=== PATIENT | female | born 1970 | race Caucasian/White ===

== ENCOUNTER → 2021-03-07 | Day surgery (SDC) | payer OTHER ==
[~2021-03-07] VITALS: Ht 160 cm; Wt 125.1 kg
[~2021-03-07] MED LIST: ASPIRIN81 MG PO; D3-501250 MCG PO; DEPO-PROVE150 MG/1 M IJ; DICLOFENAC SODI75 MG PO; GLIMEPIRIDE4 MG PO; LANTUS **100 UNITS/ SC; METFORMIN HCL500 MG PO; NEURONTIN300 MG PO; PRAVASTATIN SOD10 MG PO; PRINIVIL20 MG PO; SERTRALINE HCL100 MG PO; TRULICITY1.5 MG/0.5 SC
== END | disposition home or self-care (01) ==
LOC: FAS 06:29
DX: Z12.11 Encounter for screening for malignant neoplasm of colon (principal); D12.6 Benign neoplasm of colon, unspecified; K62.1 Rectal polyp; K64.8 Other hemorrhoids; Z86.010 Personal history of colon polyps; I10 Essential (primary) hypertension; E11.9 Type 2 diabetes mellitus without complications; K21.9 Gastro-esophageal reflux disease without esophagitis; E66.9 Obesity, unspecified; Z68.43 Body mass index [BMI] 50.0-59.9, adult; Z79.84 Long term (current) use of oral hypoglycemic drugs; Z79.82 Long term (current) use of aspirin; Z79.1 Long term (current) use of non-steroidal anti-inflammatories (NSAID); Z79.899 Other long term (current) drug therapy; Z87.891 Personal history of nicotine dependence; Z80.1 Family history of malignant neoplasm of trachea, bronchus and lung
CPT/HCPCS: 84703; J2250; J2704; J7120